=== PATIENT | female | born 1990 | race Caucasian/White ===

== ENCOUNTER → 2021-02-03 | Outpatient (CLI) | payer BC ==
[~2021-02-03] MED LIST: AMOX1TAB61 PO; IBUP800T19 PO; MAG355OR11 PO; NYST15PO9 TP
== END ==
LOC: LAB 08:39
PROVIDERS: ATTEND Nurse Anesthetist, Certified Registered
DX: Z01.812 Encounter for preprocedural laboratory examination (principal); Z20.822 Contact with and (suspected) exposure to COVID-19; D64.9 Anemia, unspecified
CPT/HCPCS: U0003

== ENCOUNTER → 2021-02-07 | Day surgery (SDC) | payer BC ==
[~2021-02-07] MED LIST changes: +IPRATRPIUM/ALBUTEROL 0.5/2.5MG 3 ML NEBU. NEB PRN; +IV RINGERS SOLUTION,LACTATED 1,000 ML IV SCH; +LIDOCAINE 2% PF 5 ML VIAL. ONE; +MIDAZOLAM HCL PF 2 MG/2 ML VIAL. IV ONE; +ONDANSETRON PF 4 MG/2 ML VIAL. IV PRN; +PROPOFOL 10,000 MCG/ML (20ML) VIAL IV ONE
[2021-02-07 10:25] LABS: U PREG PATIENT NEGATIVE (NEG)
[2021-02-07 11:30] VITALS: BP 127/81
== END | disposition home or self-care (01) ==
LOC: SURG 09:39
PROVIDERS: ATTEND Internal Medicine Gastroenterology
DX: D50.9 Iron deficiency anemia, unspecified (principal); K57.30 Diverticulosis of large intestine without perforation or abscess without bleeding; K31.89 Other diseases of stomach and duodenum; K63.89 Other specified diseases of intestine; F41.9 Anxiety disorder, unspecified; Z79.899 Other long term (current) drug therapy; Z79.82 Long term (current) use of aspirin
CPT/HCPCS: 43239; 45378; 81025; J2001; J2704; J7120